=== PATIENT | male | born 1980 | race African-American/Black ===

== ENCOUNTER → 2017-11-14 | Outpatient (CLI) | payer OTHER | LOC: COL.RAD 08:12 | DX: M25.551 Pain in right hip (principal) | CPT/HCPCS: J3301; Q9967 ==

== ENCOUNTER → 2018-06-12 | Outpatient (CLI) | payer OTHER | LOC: COL.RAD 12:35 | DX: M25.551 Pain in right hip (principal) | CPT/HCPCS: J3301; Q9967 ==